=== PATIENT | female | born 1960 | race Two or more races ===

== ENCOUNTER 2018-03-05 09:12 | Emergency (ER) | payer SELFPAY ==
[~2018-03-05] VITALS: Ht 165.1 cm; Wt 72.6 kg
[2018-03-05 09:16] VITALS: BP 140/73
[2018-03-05] MEDS ORDERED: ACETAMINOPHEN 325 MG TAB PO ONE (10:30)
== END 2018-03-05 11:28 | disposition home or self-care (01) ==
LOC: ER 09:12
DX: S16.1XXA Strain of muscle, fascia and tendon at neck level, initial encounter (principal); N39.0 Urinary tract infection, site not specified; V43.52XA Car driver injured in collision with other type car in traffic accident, initial encounter; Y93.89 Activity, other specified; Y99.8 Other external cause status; Y92.410 Unspecified street and highway as the place of occurrence of the external cause
CPT/HCPCS: 72040